=== PATIENT | female | born 1965 | race Caucasian/White ===

== ENCOUNTER → 2017-07-13 | Outpatient (CLI) | payer MEDICAID | LOC: FIMAGING 09:06 | DX: Z12.31 Encounter for screening mammogram for malignant neoplasm of breast (principal) | CPT/HCPCS: G0202 ==

== ENCOUNTER → 2017-09-02 | Outpatient (CLI) | payer MEDICAID | LOC: FIMAGING 08:57 | DX: R92.8 Other abnormal and inconclusive findings on diagnostic imaging of breast (principal) | CPT/HCPCS: G0206 ==

== ENCOUNTER → 2017-09-05 | Outpatient (CLI) | payer MEDICAID | LOC: FIMAGING 09:51 | DX: Z31.41 Encounter for fertility testing (principal) ==

== ENCOUNTER → 2018-01-02 | Outpatient (CLI) | payer MEDICAID | LOC: FIMAGING 15:04 | DX: Z31.41 Encounter for fertility testing (principal) ==

== ENCOUNTER → 2018-03-08 | Outpatient (CLI) | payer MEDICAID | LOC: FIMAGING 11:06 | DX: Z13.820 Encounter for screening for osteoporosis (principal); Z78.0 Asymptomatic menopausal state; Z82.62 Family history of osteoporosis ==

== ENCOUNTER → 2018-07-19 | Outpatient (CLI) | payer MEDICAID | LOC: FIMAGING 09:24 | PROVIDERS: ATTEND Physician Assistant | DX: Z12.31 Encounter for screening mammogram for malignant neoplasm of breast (principal) ==